=== PATIENT | male | born 1980 | race Caucasian/White ===

== ENCOUNTER 2019-08-30 12:51 | Emergency (ER) | payer OTHER, SELFPAY ==
[~2019-08-30] VITALS: Ht 167.6 cm; Wt 71.0 kg
[2019-08-30] MEDS ORDERED: CYANOCOBALAMIN 1000MCG/ML VIAL IM ONE (13:30)
[2019-08-30] MEDS ORDERED: SODIUM CHLORIDE 0.9% 1,000 ML IV ONE (13:30)
[2019-08-30 14:36] LABS: BASOPHILS % 1.8 % (0.0-2.0); EOSINOPHILS % 4.2 % (0.0-5.0); HEMATOCRIT. 44.4 % (42.0-52.0); HEMOGLOBIN. 15.1 g/dL (14.0-18.0); LYMPHOCYTES % 41.9 % (20.0-50.0); MEAN CORPUSCULAR HEMOGLOBIN 30.6 pg (28.0-32.0); MEAN CORPUSCULAR VOLUME 90.1 fL (80.0-94.0); MEAN PLATELET VOLUME 7.2 fl (7.4-10.4); MONOCYTES % 6.8 % (2.0-8.0); NEUTROPHILS % 45.3 % (40.0-76.0); PLATELET 308 x1000/uL (130-400); RED BLOOD CELL COUNT 4.93 mill/uL (4.7-6.1); RED CELL DISTRIBUTION WIDTH 19.7 % (11.6-14.6)
[2019-08-30 14:40] LABS: CHLORIDE 114 mEq/L (98-107)
[2019-08-30 14:43] LABS: CLARITY URINE CLEAR (CLEAR); COLOR URINE YELLOW (YELLOW); KETONES URINE NEGATIVE (NEGATIVE); LEUKOCYTE ESTERASE URINE NEGATIVE (NEGATIVE); NITRITE URINE NEGATIVE (NEGATIVE); OCCULT BLOOD URINE NEGATIVE (NEGATIVE); PH URINE 5.5 (4.5-8.0); PROTEIN URINE NEGATIVE (NEGATIVE); SPECIFIC GRAVITY URINE 1.006 (1.005-1.030); UROBILINOGEN URINE 0.2 E.U./dL (0.2-1.0)
[2019-08-30 15:05] LABS: ETHANOL BLOOD 490 mg/dL
[2019-08-30 15:27] LABS: *AMPHETAMINES SCREEN URINE NEGATIVE (NEGATIVE); *BARBITURATES SCREEN URINE NEGATIVE (NEGATIVE); *BENZODIAZEPINES SCREEN URINE NEGATIVE (NEGATIVE); *COCAINE SCREEN URINE NEGATIVE (NEGATIVE); METHADONE URINE SCREEN NEGATIVE (NEGATIVE); OPIATES URINE SCREEN NEGATIVE (NEGATIVE)
[2019-08-30 15:28] LABS: CANNABINOID URINE SCREEN NEGATIVE (NEGATIVE); PHENCYCLIDINE URINE SCREEN NEGATIVE (NEGATIVE)
[2019-08-30] MEDS ORDERED: AZITHROMYCIN 500 MG in DEXT 5% WATER 250 ML IV ONE (18:15)
[2019-08-30] MEDS ORDERED: ONDANSETRON HCL 4MG/2ML INJ IV PRN (21:15)
[2019-08-30] MEDS ORDERED: ACETAMINOPHEN 325MG TABLET PO PRN ×2 (21:15)
[2019-08-30] MEDS ORDERED: CLONIDINE 0.1MG TABLET PO PRN (21:15)
[2019-08-30] MEDS ORDERED: GUAIFENESIN 200MG/10ML SUGAR FREE UDC PO PRN (21:15)
[2019-08-30] MEDS ORDERED: LORAZEPAM 2MG/ML CPJ IV PRN (21:15)
[2019-08-30] MEDS ORDERED: CEFTRIAXONE 1 G PREMIX 50 ML IV SCH (21:15)
[2019-08-30] MEDS ORDERED: AZITHROMYCIN 500 MG in DEXT 5% WATER 250 ML IV SCH (21:15)
[2019-08-30] MEDS ORDERED: POTASSIUM CHLORIDE INJ 40 MEQ in DEXT 5% WATER 250 ML IV ONE (21:15)
[2019-08-30] MEDS ORDERED: ALBUTEROL 6.7GM HFA INHALER ORI PRN (21:15)
[2019-08-30] MEDS ORDERED: MVI, ADULT NO.1 10 ML, FOLIC ACID 1 MG, THIAMINE HCL 100 MG in SODIUM CHLORIDE 0.9% 1,0... IV SCH ×4 (21:15)
[2019-08-30 21:16] VITALS: BP 121/66
[2019-08-31] MEDS ORDERED: GUAIFENESIN 600MG ER TABLET PO SCH (09:00)
[2019-08-31] MEDS ORDERED: THIAMINE HCL 100MG TABLET PO SCH (09:00)
== END 2019-08-30 21:56 | disposition left against medical advice (07) ==
LOC: ER 12:59 → EDBEDREQTM 18:26 → EDBEDREQ 18:26 → ER 21:56 → CANBEDREQ 08-31 01:55
DX: T51.0X1A Toxic effect of ethanol, accidental (unintentional), initial encounter (principal); G92 Toxic encephalopathy; J18.9 Pneumonia, unspecified organism; F41.9 Anxiety disorder, unspecified; E87.6 Hypokalemia; E86.0 Dehydration; E87.8 Other disorders of electrolyte and fluid balance, not elsewhere classified; E83.51 Hypocalcemia; K21.9 Gastro-esophageal reflux disease without esophagitis; Y90.8 Blood alcohol level of 240 mg/100 ml or more; Z59.0 Homelessness; Z03.818 Encounter for observation for suspected exposure to other biological agents ruled out; Y92.488 Other paved roadways as the place of occurrence of the external cause
CPT/HCPCS: 36415; 71045; 80053; 80305; 80320; 81003; 83735; 83880; 84484; 85025; 93005; 96365; 96372; 99285; C9803; J0456; J3420; J7030; J7060; U0003; G0480